=== PATIENT | female | born 1960 | race Caucasian/White ===

== ENCOUNTER 2021-04-02 06:18 | Day surgery (SDC) | payer OTHER ==
[~2021-04-02] VITALS: Ht 157.5 cm; Wt 74.8 kg
[2021-04-02] MEDS ORDERED: LIDOCAINE 2% 100 MG/5 ML UJET TP ONE (07:40)
[2021-04-02] MEDS ORDERED: fentaNYL citrate 0.05 MG/ML VIAL ONE (07:40)
[2021-04-02] MEDS ORDERED: fentaNYL citrate 0.05 MG/ML VIAL IVP ONE (08:15)
== END 2021-04-02 08:28 | disposition home or self-care (01) ==
LOC: MDS 06:18 → MMU 06:20 → MDS 08:28
PROVIDERS: ATTEND Internal Medicine Gastroenterology
DX: Z12.11 Encounter for screening for malignant neoplasm of colon (principal); D12.0 Benign neoplasm of cecum; E11.9 Type 2 diabetes mellitus without complications; Z79.82 Long term (current) use of aspirin; Z79.4 Long term (current) use of insulin; Z79.899 Other long term (current) drug therapy
CPT/HCPCS: 45385; J3010